=== PATIENT | female | born 1980 | race Caucasian/White ===

== ENCOUNTER 2016-08-12 | Emergency (ER) | payer OTHER ==
[~2016-08-12] VITALS: Ht 167.6 cm; Wt 107.5 kg
[~2016-08-12] MED LIST: ARIP2TAB PO; BUSP5TAB PO; CYCL10TA2 PO; DOCU-27 PO; HYDR-2762 PO; HYDR-971 PO; HYDR30CR61 TP; IPRA4AER IH; MELO-156 PO; OXYC-323 PO; PALI3TAB2 PO; PROM118S2 PO; TRAM50TA PO; TRAZ100T12 PO; VENTOLIN HFA18 GM INH; VILA10TA PO
[2016-08-12 00:05] VITALS: BP 140/80
[2016-08-12] MEDS ORDERED: NYST30PO9 TP (00:33)
--- NOTE | 2016-08-12 00:33 | PHYS DOC ---
Past Medical History Past Medical History: Anxiety, Arthritis, Asthma, Bipolar, COPD, Depression Additional Past Medical Histor: chronic back pain, genital and groin abscesses Past Surgical History: Appendectomy, , Hysterectomy, Tubal ligation Additional Past Surgical Histo: bilateral axilla-sweat gland removal Alcohol Use: None Drug Use: None Adult General Chief Complaint Chief Complaint: SKIN RASH/ABSCESS [facility] HPI Patient is a 36 year old female presents emergency department stating that she is having some abscesses on her lower abdomen in the perineal area. Patient states that she has had these abscesses on and off for multiple years. She states that she's been seen by and has a primary care physician in which she follows. Patient also states that she has burning stinging type sensation in the perineal area that appears to be red and excoriated. Patient states she's had some drainage coming from the area as well. She denies fever, chills or any nausea vomiting. Review of Systems Review of Systems Constitutional: Denies fever or chills [] Eyes: Denies change in visual acuity, redness, or eye pain [] HENT: Denies nasal congestion or sore throat [] Respiratory: Denies cough or shortness of breath [] Cardiovascular: No additional information not addressed in HPI [] GI: Denies abdominal pain, nausea, vomiting, bloody stools or diarrhea [] : Denies dysuria or hematuria [] Musculoskeletal: Denies back pain or joint pain [] Integument: Red rash noted to the perineal area with redness lower abd Neurologic: Denies headache, focal weakness or sensory changes [] Endocrine: Denies polyuria or polydipsia [] Allergies Allergies Allergies Coded Allergies Type Severity Reaction Last Updated Verified Penicillins Allergy Intermediate rash, itching 04/01/15 Yes Physical Exam Physical Exam Constitutional: Well developed, well nourished, no acute distress, non-toxic appearance. [] HENT: Normocephalic, atraumatic, bilateral external ears normal, oropharynx moist, no oral exudates, nose normal. [] Eyes: PERRLA, EOMI, conjunctiva normal, no discharge. [] Neck: Normal range of motion, no tenderness, supple, no stridor. [] Cardiovascular:Heart rate regular rhythm, no murmur [] Lungs & Thorax: Bilateral breath sounds clear to auscultation [] Skin: Warm, dry, no erythema, no rash. Lower abdomen with redness noted around the area no abscesses noted. Patient was also noted to have excoriated areas in the perineal area that appears to be yeast type infection. No drainage or discharge noted from the areas. Back: No tenderness Extremities: No tenderness, no cyanosis, no clubbing, ROM intact, no edema. [] Neurologic: Alert and oriented X 3, normal motor function, normal sensory function, no focal deficits noted. [] Psychologic: Affect normal, judgement normal, mood normal. [] Current Patient Data Vital Signs Vital Signs Date Time Temp Pulse Resp B/P Pulse Ox O2 Delivery O2 Flow Rate FiO2 08/12/16 00:05 98.4 77 16 95 Room Air 98.4 EKG EKG [] Radiology/Procedures Radiology/Procedures [] Course & Med Decision Making Course & Med Decision Making Pertinent Labs and Imaging studies reviewed. (See chart for details) Back with patient regards to keeping the areas clean and dry. Patient states she has tramadol at home in which she can take for pain and discomfort. Patient will be encouraged to use nystatin powder in the areas. Also recommended following up with her primary care physician next 3-5 days. Since symptoms to return back to emergency department been provided. Patient agrees with discharge instructions treatment regimens and follow-up recommendations. [] Dragon Disclaimer Dragon Disclaimer This electronic medical record was generated, in whole or in part, using a voice recognition dictation system. Departure Departure Impression: Primary Impression: Candidiasis Disposition: 01 HOME, SELF-CARE Condition: STABLE Referrals: UNKNOWN PCP NAME (PCP) Patient Instructions: Sonia Infection, Adult Additional Instructions: Activity as tolerated. Keep the areas clean and dry. Use Dial soap to cleanse the areas twice a day. Apply medication as directed. Follow-up to primary care physician next 3-5 days. Return back to emergency prior signs symptoms become worse. Scripts Nystatin 15 Gm Powder1 Joni TP BID #2 BOTTLE Prov:SHE DOBBS APRN 08/12/16 SHE DOBBS APRN Aug 12, 2016 00:33
== END 2016-08-12 00:39 | disposition home or self-care (01) ==
LOC: ER
DX: B37.89 Other sites of candidiasis (principal); J44.9 Chronic obstructive pulmonary disease, unspecified; M19.90 Unspecified osteoarthritis, unspecified site; F31.9 Bipolar disorder, unspecified; G89.29 Other chronic pain; Z90.710 Acquired absence of both cervix and uterus; Z90.49 Acquired absence of other specified parts of digestive tract; Z98.51 Tubal ligation status; Z88.0 Allergy status to penicillin
CPT/HCPCS: 99283

== ENCOUNTER 2017-04-26 10:10 | Emergency (ER) | payer OTHER | END 2017-04-26 10:45 | disposition home or self-care (01) | LOC: ER 10:10 | DX: B02.9 Zoster without complications (principal); F41.9 Anxiety disorder, unspecified; M19.90 Unspecified osteoarthritis, unspecified site; J44.9 Chronic obstructive pulmonary disease, unspecified; F31.9 Bipolar disorder, unspecified; G89.29 Other chronic pain; Z88.0 Allergy status to penicillin; Z90.49 Acquired absence of other specified parts of digestive tract; Z98.51 Tubal ligation status | CPT/HCPCS: 99283 ==

== ENCOUNTER 2019-06-16 08:43 | Emergency (ER) | payer MEDICAID, OTHER ==
[~2019-06-16] VITALS: Ht 167.6 cm; Wt 110.4 kg
[~2019-06-16 08:43] MED LIST changes: +ACET-704 PO; +ACYC800T PO; -ARIP2TAB PO; +ARIP2TAB3 PO; +DOCU-109 PO; -DOCU-27 PO; -HYDR-2762 PO; +HYDR-2765 PO; +HYDR-3164 PO; -HYDR-971 PO; -MELO-156 PO; +MELO7.5T29 PO; +NYST15PO9 TP; -OXYC-323 PO; +OXYC1TAB15 PO; -PROM118S2 PO; +PROM118S5 PO; +TRAZ-123 PO; -TRAZ100T12 PO
[2019-06-16 10:11] VITALS: BP 133/71
[2019-06-16] MEDS ORDERED: TRAM50TA PO (10:47)
--- NOTE | 2019-06-16 10:51 | PHYS DOC ---
Past Medical History Past Medical History: Anxiety, Arthritis, Asthma, Bipolar, COPD, Depression, Diabetes-Type II Additional Past Medical Histor: chronic back pain, genital and groin abscesses (EMMANUELLE GARNER APRN) Past Surgical History: Appendectomy, , Hysterectomy, Tubal ligation Additional Past Surgical Histo: bilateral axilla-sweat gland removal (EMMANUELLE GARNER APRN) Smoking Status: Current Every Day Smoker Alcohol Use: None Drug Use: None (EMMANUELLE GARNER APRN) Adult General Chief Complaint Chief Complaint: SKIN PROBLEM HPI HPI Patient is a 39 year old female with history of diabetes type 2, anxiety, bipolar, who presents to the ED today complaining of an abscess on the left groin region for 3 days and left axilla for 2 days. Patient reports being on doxycycline for 2 days. She reports the one on the left groin opened up and drained. She reports having history of sweat gland issues and has been following up with her surgeon at [facility]. (EMMANUELLE GARNER APRN) Review of Systems Review of Systems Constitutional: Denies fever or chills [] Musculoskeletal: Denies back pain or joint pain [] Integument: Reports left axilla abscess, left groin abscess Neurologic: Denies headache, focal weakness or sensory changes [] All other systems were reviewed and found to be within normal limits, except as documented in this note. (EMMANUELLE GARNER APRN) Allergies Allergies Allergies Coded Allergies Type Severity Reaction Last Updated Verified Influenza Virus Vaccines Allergy Intermediate rash 04/26/17 Yes Penicillins Allergy Intermediate rash, itching 04/01/15 Yes (PHILLIP BAKER DO) Physical Exam Physical Exam Constitutional: Well developed, well nourished, no acute distress, non-toxic appearance. [] Skin: Warm, dry, and left axilla with a scar from previous hydradenitis supra surgery, there is mild swelling over the scapular region with no fluctuance. Left groin region with multiple scabbed up regions, no open abscess noted. Back: No tenderness, no CVA tenderness. [] Extremities: No tenderness, no cyanosis, no clubbing, ROM intact, no edema. [] Neurologic: Alert and oriented X 3, normal motor function, normal sensory function, no focal deficits noted. [] Psychologic: Affect normal, judgement normal, mood normal. [] (EMMANUELLE GARNER APRN) Current Patient Data Vital Signs Vital Signs Date Time Temp Pulse Resp B/P (MAP) Pulse Ox O2 Delivery O2 Flow Rate FiO2 06/16/19 10:11 98.4 73 16 133/71 (91) 97 Room Air 98.4 (PHILLIP BAKER DO) EKG EKG [] (EMMANUELLE GARNER APRN) Radiology/Procedures Radiology/Procedures [] (EMMANUELLE GARNER APRN) Course & Med Decision Making Course & Med Decision Making Pertinent Labs and Imaging studies reviewed. (See chart for details) This is a 39-year-old female patient presenting to the ED today with left axilla abscess as well as left groin abscess. Patient has history of hydradenitis denise pra. Currently on doxycycline. Follows up with her surgeon at [facility]. Tetanus is up-to-date. I recommended she follows up with her surgeon at [facility] for surgical intervention. We'll discharge her home with tramadol. Patient reported calling her surgeon at in the Ed. Has an appointment on 06/27/2019 (EMMANUELLE GARNER APRN) Dragon Disclaimer Dragon Disclaimer This electronic medical record was generated, in whole or in part, using a voice recognition dictation system. (EMMANUELLE GARNER APRN) Departure Departure Impression: Primary Impression: Hidradenitis suppurativa of left axilla Disposition: 01 HOME, SELF-CARE Condition: STABLE Referrals: UNKNOWN PCP NAME (PCP) Follow up with your surgeon at [facility] on 06/27/2019 Patient Instructions: Hidradenitis Suppurativa, Sweat Gland Abscess Additional Instructions: Keep the area clean and dry, apply warm compresses to the area twice a day. Continue taking doxycycline until completed. Take the pain medicine only if your pain cannot be handled with [id number] medications. Do not drive or operate machinery on the pain medicine Scripts Tramadol Hcl (TRAMADOL HCL) 50 Mg Tablet 50 MG PO Q6HRS PRN for PAIN, #20 TAB Prov: EMMANUELLE GARNER APRN 06/16/19 Attending Signature Attending Signature I have reviewed the PA/RN REGISTRY's note and plan of care. I was available for consultation as needed during the patient's visit in the emergency department. I agree with the clinical impression, plan, and disposition. (PHILLIP BAKER DO) EMMANUELLE GARNER APRN Jun 16, 2019 10:51 PHILLIP BAKER DO Jun 16, 2019 15:29
== END 2019-06-16 10:55 | disposition home or self-care (01) ==
LOC: ER 08:43
DX: L73.2 Hidradenitis suppurativa (principal); L02.214 Cutaneous abscess of groin; F31.9 Bipolar disorder, unspecified; J44.9 Chronic obstructive pulmonary disease, unspecified; E11.9 Type 2 diabetes mellitus without complications; G89.29 Other chronic pain; Z90.89 Acquired absence of other organs; Z90.710 Acquired absence of both cervix and uterus; Z98.51 Tubal ligation status; F17.200 Nicotine dependence, unspecified, uncomplicated; Z88.0 Allergy status to penicillin; Z88.7 Allergy status to serum and vaccine
CPT/HCPCS: 99283

== ENCOUNTER 2020-10-09 15:39 | Emergency (ER) | payer MEDICAID ==
[~2020-10-09] VITALS: Ht 167.6 cm; Wt 103.6 kg
[~2020-10-09 15:39] MED LIST changes: -ACYC800T PO; +ACYC800T88 PO
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
[2020-10-09] MEDS ORDERED: MORPHINE SULFATE 2 MG/ML VIAL. IV ONE (16:30)
[2020-10-09] MEDS ORDERED: ONDANSETRON PF 4 MG/2 ML VIAL. IVP ONE (16:30)
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
[2020-10-09 18:40] VITALS: BP 122/65
== END 2020-10-09 18:49 | disposition short-term general hospital (02) ==
LOC: ER 15:39
DX: S02.832A Fracture of medial orbital wall, left side, initial encounter for closed fracture (principal); S62.304A Unspecified fracture of fourth metacarpal bone, right hand, initial encounter for closed fracture; R42 Dizziness and giddiness; J44.9 Chronic obstructive pulmonary disease, unspecified; F31.9 Bipolar disorder, unspecified; M54.2 Cervicalgia; G89.29 Other chronic pain; F17.200 Nicotine dependence, unspecified, uncomplicated; Y04.0XXA Assault by unarmed brawl or fight, initial encounter; Y93.89 Activity, other specified; Y92.89 Other specified places as the place of occurrence of the external cause; Y99.8 Other external cause status
CPT/HCPCS: 70450; 70486; 72125; 73130; 96374; 96375; 99285; J2270; J2405